=== PATIENT | female | born 1940 | race Caucasian/White ===

== ENCOUNTER 2017-12-10 17:24 | Inpatient (IN) | payer OTHER ==
--- NOTE | 2017-12-10 17:51 | EDPHY ---
H & P Time Seen by Provider: 12/10/17 17:48 HPI/ROS: CHIEF COMPLAINT: Vomiting and abdominal bloating HISTORY OF PRESENT ILLNESS: History of previous bladder cancer surgery but transvaginal, no other abdominal surgeries. 1 week of nausea vomiting and bloating. Associated with having lost 8 lb and anorexia. No diarrhea and no output rectally including no gas. Symptoms severe. Saw her primary care office on Wednesday and was advised symptomatic care. Bloating and discomfort is diffuse and not localized. Worse with trying to eat or drink anything. Does feel very bloated and distended. REVIEW OF SYSTEMS: Eye: no change in vision ENT: no sore throat Cardiac: no chest pain or syncope Pulmonary: no cough or SOB Abdomen: HPI Musculoskeletal: no back pain Skin: no rash Neuro: no headache Constitutional: no fever : no urinary symptoms A comprehensive 10 point review of systems is otherwise negative aside from elements mentioned in the history of present illness. PAST MEDICAL HISTORY: Bladder cancer and hypothyroid Social history: Nonsmoker, Dr. Cuadra's patient. General Appearance: Alert and conversant, cooperative. Eyes: No scleral icterus. ENT, Mouth: Dry mucous membranes. Respiratory: Normal respiratory effort, breath sounds equal, lungs are clear to auscultation. Cardiovascular: Regular rate and rhythm. Gastrointestinal: Distended abdomen with mild periumbilical tenderness but no rebound or guarding. Rectal exam shows no stool in the vault. Neurological: Alert, face symmetric, normal motor and sensory in extremities. Skin: Warm and dry, no rashes. Musculoskeletal: No peripheral edema. Psychiatric: Not agitated. Emergency Department course/MDM: Zofran 4 mg IV, normal saline 1 L, i-STAT. CT scan discussed and consented, concern for bowel obstruction. 1908: Finer CT, SBO with mid ileal transition. Bladder diverticulum or contained break in bladder wall with gas bubbles. Dr. Bennett agrees to admit patient, will see her in the emergency department. Results and plan discussed with patient and her . Smoking Status: Never smoked Constitutional: Initial Vital Signs Temperature (C) 36.0 C 12/10/17 17:35 Heart Rate 95 12/10/17 17:35 Respiratory Rate 18 12/10/17 17:35 Blood Pressure 156/89 H 12/10/17 17:35 O2 Sat (%) 94 12/10/17 17:35 O2 Delivery Mode Room Air Allergies/Adverse Reactions: No Known Allergies Allergy (Unverified 12/10/17 17:34) Home Medications: Medication Instructions Recorded Atorvastatin Calcium [Lipitor 20 20 mg PO HS 12/10/17 mg (*)] Calcium Carbonate [Oyster Shell 500 mg PO DAILY 12/10/17 Calcium 500 mg (*)] Cholecalciferol Vit D3 [Vitamin D3 2,000 units PO DAILY 12/10/17 (*)] Levothyroxine [Synthroid 50 mcg 50 mcg PO DAILY06 12/10/17 (*)] Multivitamins [Multivitamin (*)] 1 each PO DAILY 12/10/17 Medical Decision Making - Diagnostics Imaging Results: Imaging Impressions Abdomen CT 12/10/17 18:06 Impression: 1. Moderate high-grade SBO involving mid ileum in the mid to upper central pelvis with point of transition identified and possible mild swirling of small bowel loop. 2. Complex gas containing diverticulum along the left anterior superior margin of the bladder versus abscess and appears to be in close proximity to the point of transition involving decompressed distal small bowel mid pelvis. If indicated , delayed imaging through the pelvis this evening can better delineate contour of bladder and possible bladder diverticulum as contrast accumulates in the bladder. Findings discussed with Jerman Ureña M.D. at 19:08 hour, 12/10/2017. Imaging: Discussed imaging studies w/ order caller Radiologist Differential Diagnosis: Differential considered including but not limited to small-bowel obstruction, large bowel obstruction, constipation, ileus. Consult/Admit Bed Type: [place] [address] - Data Points Laboratory Results: Laboratory Results 12/10/17 18:00 12/10/17 18:00 12/10/17 12/10/17 12/10/17 18:04 18:00 18:00 WBC RBC Hgb POC Hgb 18.4 gm/dL H gm/dL (12.6-16.3) Hct POC Hct 54 % H % (38-47) MCV MCH MCHC RDW Plt Count MPV Neut % (Auto) Lymph % (Auto) Kershaw % (Auto) Eos % (Auto) Baso % (Auto) Nucleat RBC Rel Count Absolute Neuts (auto) Absolute Lymphs (auto) Absolute Monos (auto) Absolute Eos (auto) Absolute Basos (auto) Absolute Nucleated RBC Immature Gran % Immature Gran # POC Sodium 129 mEq/L L mEq/L (135-145) Sodium 130 mEq/L L mEq/L (135-145) POC Potassium 4.0 mEq/L mEq/L (3.3-5.0) Potassium 4.6 mEq/L mEq/L (3.3-5.0) POC Chloride 89 mEq/L L mEq/L (97-110) Chloride 87 mEq/L L mEq/L (97-110) Carbon Dioxide 29 mEq/l mEq/l (22-31) Anion Gap 14 mEq/L mEq/L (8-16) POC BUN 29 mg/dL H mg/dL (7-23) BUN 31 mg/dL H mg/dL (7-23) Creatinine 1.1 mg/dL H mg/dL (0.6-1.0) POC Creatinine 1.1 mg/dL H mg/dL (0.6-1.0) Estimated GFR 48 Glucose 114 mg/dL H mg/dL (70-100) POC Glucose 117 mg/dL H mg/dL (70-100) Calcium 10.2 mg/dL mg/dL (8.5-10.4) Total Bilirubin 1.1 mg/dL mg/dL (0.1-1.4) Conjugated Bilirubin 0.3 mg/dL mg/dL (0.0-0.5) Unconjugated Bilirubin 0.8 mg/dL mg/dL (0.0-1.1) AST 29 IU/L IU/L (14-46) ALT 39 IU/L IU/L (9-52) Alkaline Phosphatase 110 IU/L IU/L (38-126) Total Protein 7.5 g/dL g/dL (6.3-8.2) Albumin 4.5 g/dL g/dL (3.5-5.0) Lipase 645 IU/L H IU/L (23-300) Stool Occult Bld Scrn NEGATIVE (NEGATIVE) 12/10/17 18:00 WBC 10.96 10^3/uL H 10^3/uL (3.80-9.50) RBC 4.99 10^6/uL 10^6/uL (4.18-5.33) Hgb 17.0 g/dL H g/dL (12.6-16.3) POC Hgb Hct 48.3 % H % (38.0-47.0) POC Hct MCV 96.8 fL fL (81.5-99.8) MCH 34.1 pg pg (27.9-34.1) MCHC 35.2 g/dL g/dL (32.4-36.7) RDW 11.8 % % (11.5-15.2) Plt Count 453 10^3/uL H 10^3/uL (150-400) MPV 8.2 fL L fL (8.7-11.7) Neut % (Auto) 80.6 % H % (39.3-74.2) Lymph % (Auto) 10.6 % L % (15.0-45.0) Kershaw % (Auto) 7.8 % % (4.5-13.0) Eos % (Auto) 0.3 % L % (0.6-7.6) Baso % (Auto) 0.4 % % (0.3-1.7) Nucleat RBC Rel Count 0.2 % % (0.0-0.2) Absolute Neuts (auto) 8.84 10^3/uL H 10^3/uL (1.70-6.50) Absolute Lymphs (auto) 1.16 10^3/uL 10^3/uL (1.00-3.00) Absolute Monos (auto) 0.86 10^3/uL H 10^3/uL (0.30-0.80) Absolute Eos (auto) 0.03 10^3/uL 10^3/uL (0.03-0.40) Absolute Basos (auto) 0.04 10^3/uL 10^3/uL (0.02-0.10) Absolute Nucleated RBC 0.02 10^3/uL H 10^3/uL (0-0.01) Immature Gran % 0.3 % % (0.0-1.1) Immature Gran # 0.03 10^3/uL 10^3/uL (0.00-0.10) POC Sodium Sodium POC Potassium Potassium POC Chloride Chloride Carbon Dioxide Anion Gap POC BUN BUN Creatinine POC Creatinine Estimated GFR Glucose POC Glucose Calcium Total Bilirubin Conjugated Bilirubin Unconjugated Bilirubin AST ALT Alkaline Phosphatase Total Protein Albumin Lipase Stool Occult Bld Scrn Medications Given: Discontinued Medications Sodium Chloride (Ns) 1,000 mls @ 0 mls/hr IV ONCE ONE; Wide Open PRN Reason: Protocol Stop: 12/10/17 18:00 Last Admin: 12/10/17 18:03 Dose: 1,000 mls Sodium Chloride (Ns) 1,000 mls @ 0 mls/hr IV EDNOW ONE; Wide Open PRN Reason: Protocol Stop: 12/10/17 19:58 Last Admin: 12/10/17 19:57 Dose: 1,000 mls Ondansetron HCl (Zofran) 4 mg IVP EDNOW ONE Stop: 12/10/17 17:59 Last Admin: 12/10/17 18:03 Dose: 4 mg Point of Care Test Results: Chemistry 12/10/17 18:04 POC Sodium 129 mEq/L L mEq/L (135-145) POC Potassium 4.0 mEq/L mEq/L (3.3-5.0) POC Chloride 89 mEq/L L mEq/L (97-110) POC BUN 29 mg/dL H mg/dL (7-23) POC Creatinine 1.1 mg/dL H mg/dL (0.6-1.0) POC Glucose 117 mg/dL H mg/dL (70-100) ISTAT H&H 12/10/17 18:04 POC Hgb 18.4 gm/dL H gm/dL (12.6-16.3) POC Hct 54 % H % (38-47) Departure - Departure Disposition: [facility] Inpatient Acute Clinical Impression: Small bowel obstruction Condition: Good
[2017-12-10] MEDS ORDERED: ONDANSETRON 4 MG/2 ML VIAL IVP ONE (17:58)
[2017-12-10] MEDS ORDERED: NS 1,000 ML IV ONE ×2 (17:59→19:57)
[2017-12-10 18:08] LABS: PLATELET COUNT 453 10^3/uL (150-400)
[2017-12-10] MEDS ORDERED: IOPAMIDOL (ISOVUE-300) 100 ML BTL ONE (18:15)
[2017-12-10] MEDS ORDERED: cefOXitin SODIUM 2 GM in NS 100 ML IV ONE (20:08)
[2017-12-10] MEDS ORDERED: BUPIVACAINE/EPI 0.5% 30 ML SDV ONE (20:12)
[2017-12-10] MEDS ORDERED: ROCURONIUM 100 MG/10 ML VIAL ONE (20:53)
[2017-12-10] MEDS ORDERED: fentaNYL 250 MCG/5 ML INJ ONE (20:53)
[2017-12-10] MEDS ORDERED: ONDANSETRON 4 MG/2 ML VIAL ONE (20:53)
[2017-12-10] MEDS ORDERED: RANITIDINE 50 MG/2 ML VIAL ONE (20:53)
[2017-12-10] MEDS ORDERED: DEXAMETHASONE 4 MG/ML VIAL ONE (20:53)
[2017-12-10] MEDS ORDERED: PROPOFOL 200 MG/20 ML VIAL ONE (20:53)
[2017-12-10] MEDS ORDERED: LIDOCAINE 2% 100 MG/5 ML SYR ONE (20:54)
--- NOTE | 2017-12-10 21:19 | GHP ---
DATE OF ADMISSION: 12/10/2017 REASON FOR CONSULTATION: Small-bowel obstruction. HISTORY OF PRESENT ILLNESS: 77-year-old female with no antecedent abdominal surgical history, presents to the emergency room with a 1-week history of progressive abdominal distention, nausea and vomiting. She has been unable to pass flatus or bowel movement for the past week. She was initially thought to have evidence of a gastroenteritis which failed to resolve with conservative measures. She was planned to follow up with a GI doctor and was told that this would take approximately a week for an appointment. She presented to the emergency room for further assessment. In the ER, workup disclosed evidence of a small-bowel obstruction. Surgery has been requested for further recommendations. The patient denies any antecedent history of prior similar concerns. Her only prior surgical history is that of a transurethral resection of bladder tumor. She denies fevers or chills. She has not been voiding. She has been unable to hold down hydration. Her q3 month bladder surveillance cystoscopies have been without tumor recurrence. PAST MEDICAL HISTORY: Bladder cancer, hypothyroidism. PAST SURGICAL HISTORY: TURBT. MEDICATIONS: Statin, levothyroxine, vitamin D. ALLERGIES: No known drug allergies. SOCIAL HISTORY: No alcohol, no tobacco. She is to her . REVIEW OF SYSTEMS: Notable for above acute GI complaints only. PHYSICAL EXAM: VITAL SIGNS: Temperature 36.8, blood pressure 145/74, pulse 90 , respirations 18. GENERAL: Patient is alert, appropriate, comfortable. HEENT : Anicteric. No cervical or supraclavicular lymphadenopathy. HEART: Regular. LUNGS: Clear. ABDOMEN: Markedly distended, firm with multiple palpable loops of small bowel. No abdominal hernias. No abdominal erythema. EXTREMITIES: Without edema. NEUROLOGIC EXAM: Alert and appropriate. SKIN: Without rashes. LABORATORY DATA: White count 11, hemoglobin 18, platelets 450. Electrolytes: Sodium 129, potassium 4, chloride 89, CO2 of 29, BUN 29, creatinine 1.1, glucose 117. Liver enzymes within reference range. Lipase 645. CT images were directly reviewed on PACS, obvious small-bowel obstruction with a mid ileal transition zone. Evidence of possible bladder diverticula versus query small-bowel fistula with abscess. Clinically, no prior antecedent concerns for the aforementioned diagnosis. IMPRESSION: Small-bowel obstruction x1 week with no antecedent intraabdominal surgery. Abnormal bladder findings as above - query enterovesical fistula or abscess? PLAN: Laparoscopic exploration, possible laparotomy, possible resection as indicated. Surgical risks and benefits are explained to the patient and in detail. Differential diagnoses were discussed as well, adhesions, hernias and neoplasms. All questions are answered. They desire to proceed. /[id number]/MODL MTDD
[2017-12-10] MEDS ORDERED: GLYCOPYRROLATE 0.2 MG/1 ML VIAL ONE ×2 (22:54)
[2017-12-10] MEDS ORDERED: NEOSTIGMINE METHYLSULFATE 5 MG/5 ML SYR ONE (22:54)
[2017-12-10] MEDS ORDERED: ONDANSETRON 4 MG/2 ML VIAL IVP PRN ×2 (23:10→23:21)
[2017-12-10] MEDS ORDERED: HYDROmorphone HCL 0.5 MG/0.5 ML SYR IVP PRN (23:10)
[2017-12-10] MEDS ORDERED: ACETAMINOPHEN 325 MG TAB PO PRN (23:10)
[2017-12-10] MEDS ORDERED: HYDROCODONE/APAP 5/325 TAB PO PRN (23:10)
[2017-12-10] MEDS ORDERED: D5W NS 1,000 ML IV SCH (23:15)
--- NOTE | 2017-12-10 23:16 | POSTOPPROG ---
Post Op Note Date of Operation: 12/10/17 Surgeon: Bashir Bennett Anesthesiologist: Christophe Min Anesthesia: GET(General Endotracheal) Pre-op Diagnosis: SBO Post-op Diagnosis: enterovesical fistula with abscess Procedure: lap ev fistula takedown with bladder repair Findings: fistula with abscess Inf/Abcess present in the surg proc area at time of surgery?: Yes Depth: Organ Space EBL: Minimal Complications: no immediate Drains: Other (larose) Specimen(s): bladder mucosa
[2017-12-10] MEDS ORDERED: ALBUTEROL 3 ML DEYVIAL IH PRN (23:21)
[2017-12-10] MEDS ORDERED: fentaNYL 100 MCG/2 ML INJ IVP PRN (23:21)
[2017-12-10] MEDS ORDERED: NALOXONE HCL 0.4 MG/ML INJ IVP PRN (23:21)
--- NOTE | 2017-12-10 23:21 | POSTANESTH ---
Post Anesthetic Evaluation Cardiovascular Status: Similar to Pre-Op Cond Respiratory Status: Similar to Pre-op Cond. Level of Consciousness/Mental Status: Mildly Sleepy, Arousable Pain Control: Adequate, Prn Tx Ordered Nausea/Vomiting Control: Adequate, Prn Tx Ordered Complications Possibly Related to Anesthesia: None Noted
--- NOTE | 2017-12-10 23:21 | PDANEPAE ---
ANE Past Medical History - Pulmonary History Hx Oxygen in Use at Home: No Hx Sleep Apnea: No - Endocrine History Hx Diabetes: No ANE Review of Systems Review of Systems: ANE Patient History - Allergies Allergies/Adverse Reactions: No Known Allergies Allergy (Unverified 12/10/17 17:34) - Home Medications Home Medications: Atorvastatin Calcium [Lipitor 20 mg (*)] 20 mg PO HS 12/10/17 [Last Taken 1 Week Ago ~12/03/17] Calcium Carbonate [Oyster Shell Calcium 500 mg (*)] 500 mg PO DAILY 12/10/17 [ Last Taken 1 Week Ago ~12/03/17] Cholecalciferol Vit D3 [Vitamin D3 (*)] 2,000 units PO DAILY 12/10/17 [Last Taken 1 Week Ago ~12/03/17] Levothyroxine [Synthroid 50 mcg (*)] 50 mcg PO DAILY06 12/10/17 [Last Taken 1 Week Ago ~12/03/17] Multivitamins [Multivitamin (*)] 1 each PO DAILY 12/10/17 [Last Taken 1 Week Ago ~12/03/17] - NPO status NPO Since - Liquids (Date): 12/10/17 NPO Since - Liquids (Time): 07:00 NPO Since - Solids (Date): 12/08/17 NPO Since - Solids (Time): 07:00 - Smoking Hx Smoking Status: Never smoked ANE Labs/Vital Signs - Labs Result Diagrams: 12/10/17 18:00 12/10/17 18:00 - Vital Signs Blood Pressure: 150/80 Heart Rate: 90 Respiratory Rate: 20 O2 Sat (%): 94 Height: 172.72 cm Weight: 62.142 kg ANE Physical Exam - Airway Neck exam: FROM Mallampati Score: Class 2 Mouth exam: normal dental/mouth exam - Pulmonary Pulmonary: no respiratory distress - Cardiovascular Cardiovascular: regular rate and rhythym - ASA Status ASA Status: II ANE Anesthesia Plan Anesthesia Plan: general endotracheal anesthesia
--- NOTE | 2017-12-10 23:54 | GOP ---
DATE OF OPERATION: 12/10/2017 SURGEON: Bashir Bennett MD ANESTHESIA: General. ANESTHESIOLOGIST: Dr. Min. PREOPERATIVE DIAGNOSIS: Small bowel obstruction. 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 PROCEDURE PERFORMED: Laparoscopic takedown of enterovesical fistula with bladder repair. FINDINGS: Enterovesical fistula with abscess. INDICATIONS: 77-year-old female with a 1-week history of a progressive small bowel obstruction. She has undergone no prior antecedent abdominal surgery. She has a notable history for bladder cancer, status post TURBT with negative surveillance followups. She is taken to the operating room tonight for a laparoscopic exploration. DESCRIPTION OF PROCEDURE: General anesthesia was induced. The abdomen was pre- injected with 0.5% Marcaine with epinephrine. A Veress needle was placed in left upper quadrant. 5 mm trocar was subsequently introduced followed by 2 additional 5 mm ports within the infraumbilical position as well as left lower quadrant. Abdominal exploration disclosed an obvious small bowel obstruction with transition point adherent to the dome of the bladder. Extensive time was spent peeling away the small bowel adhesions from the dome disclosing a solitary incomplete fistulization between the dome and small bowel with contained mural abscess. The abscess was drained. Using sharp dissection and Kittner dissectors, the bowel was able to be teased away from the bladder confirming the fistula with a small area of a persistent pouting mucosa. Portions of this were excised and sent for a biopsy. The bladder was instilled showing the cystotomy/fistulous site. This area was initially attempted to be closed using a PDS endo-loop. Given the massively thickened nature of the area , a reasonable purchase was unable to be obtained. The area was primarily closed with 2 running 3-0 V-Loc sutures. The bladder was again re-instilled with saline showing no evidence of ongoing leak. The small bowel was run from the ileocecal valve toward the ligament of Treitz. No further areas of obstruction were noted. The bowel was noted to be hemostatic without evidence of injury. Satisfactory hemostasis was assured. Interceed was placed over the cystotomy repair site. Trocars were removed under direct visualization. The wounds were closed with Monocryl suture followed by Dermabond. The patient was taken to the recovery room, extubated uneventfully. /[id number]/MODL MTDD
[2017-12-11] MEDS: IBUPROFEN 600 MG TAB PO SCH ×3 (05:11→21:25)
--- NOTE | 2017-12-11 07:20 | PDMN ---
Medical Necessity Medical necessity: Pt meets inpt criteria per MD order and MCG M-210, Intestinal Obstruction. 77 y/o pt w/ ongoing abd pain,N/V, bloating, abd CT shows mod to high-grade SBO, surg consult, surg intervention: lap enterovesical fistula takedown w/bladder repair, anticipate>2MN for post-op monitoring/ treatment.
--- NOTE | 2017-12-11 07:39 | SOAPPROG ---
SOAP Progress Note Assessment/Plan: Assessment:no overnight issues. pain markedly improved. no nausea. avss. comfortable. abd soft, decreased distention. incis clean. pod#1 s/p takedown enterovesical fistula, abscess, sbo with cystotomy repair. larose clear, mana. Na 130. doing great. diet as able. cont larose. cont ancef. poss dc tomorrow if cont to tolerate po. Plan: 12/11/17 07:37 Objective: Vital Signs Temp Pulse Resp BP Pulse Ox 36.4 C 71 16 111/69 95 12/11/17 03:24 12/11/17 03:24 12/11/17 03:24 12/11/17 03:24 12/11/17 03:24 Laboratory Results 12/11/17 04:45 12/10/17 12/11/17 12/12/17 05:59 05:59 05:59 Intake Total 4100 Output Total 180 Balance 3920 ICD10 Worksheet Patient Problems: Problems Problem Status Onset Small bowel obstruction Acute
[2017-12-11] MEDS ORDERED: PNEUMOC 13-VAL CONJ-DIP CRM/PF 0.5 ML SYR IM ONE (11:09)
--- NOTE | 2017-12-11 15:56 | ASMTCMCOM ---
CM Note CM Note Notes: Pt admitted for SBO and subsequently had enerovesicle takedown surgery. No therapies ordered at this time. Pt likely to d/c tomorrow pending ability to eat and drink. Pt lives at home with and is comfortable discharging home independently with 's support. No CM need anticipated at this time. CM to follow. D/C Plan: Home independently with Date Signed: 12/11/2017 03:56 PM Electronically Signed By:Saadia Roebrt
[2017-12-12] MEDS: IBUPROFEN 600 MG TAB PO SCH ×3 (05:53→22:05)
--- NOTE | 2017-12-12 09:17 | SOAPPROG ---
SOAP Progress Note Assessment/Plan: Assessment:emesis x1 earlier today am. no pain. no nausea. no flatus. some belching. avss. comfortable. abd dist, soft, tympanitic. incision clean. pod #2 s/p lenora, enterovesical fistula repair. slow progress. po as able. ambulate. await ileus resolution. poss dc tonight if able to maintain po/ hydration. cont larose with cystogram prior to cath removal later this week. care plan reviewed with patient, and nursing staff. no overnight issues. pain markedly improved. no nausea. avss. comfortable. abd soft, decreased distention. incis clean. pod#1 s/p takedown enterovesical fistula, abscess, sbo with cystotomy repair. larose clear, mana. Na 130. doing great. diet as able. cont larose. cont ancef. poss dc tomorrow if cont to tolerate po. Plan: 12/11/17 07:37 12/12/17 09:15 Objective: Vital Signs Temp Pulse Resp BP Pulse Ox 36.6 C 77 16 129/62 H 93 12/12/17 07:24 12/12/17 07:24 12/12/17 07:24 12/12/17 07:24 12/12/17 07:24 Laboratory Results 12/11/17 04:45 12/11/17 12/12/17 12/13/17 05:59 05:59 05:59 Intake Total 4100 400 Output Total 180 1400 Balance 3920 -1000 ICD10 Worksheet Patient Problems: Problems Problem Status Onset Small bowel obstruction Acute
[2017-12-12] MEDS ORDERED: ONDANSETRON 4 MG/2 ML VIAL IVP PRN (12:00)
[2017-12-12] MEDS ORDERED: D5W 1/2 NS W/ 20 KCl/L 1,000 ML IV SCH (12:00)
[2017-12-13] MEDS: IBUPROFEN 600 MG TAB PO SCH (05:28)
[2017-12-13 07:28] VITALS: BP 116/78
--- NOTE | 2017-12-13 07:29 | SOAPPROG ---
SOAP Progress Note Assessment/Plan: Assessment:no further emesis. no pain. less belching. +flatus. AVSS. comfortable. abd dist, soft. incis clean. improved ileus s/p lap LENORA/EV fistula repar. plan for DC later today. can stop ABX on discharge. cystogram and f/u later this week. all questions answered. emesis x1 earlier today am. no pain. no nausea. no flatus. some belching. avss. comfortable. abd dist, soft, tympanitic. incision clean. pod#2 s/p lenora , enterovesical fistula repair. slow progress. po as able. ambulate. await ileus resolution. poss dc tonight if able to maintain po/hydration. cont larose with cystogram prior to cath removal later this week. care plan reviewed with patient, and nursing staff. no overnight issues. pain markedly improved. no nausea. avss. comfortable. abd soft, decreased distention. incis clean. pod#1 s/p takedown enterovesical fistula, abscess, sbo with cystotomy repair. larose clear, mana. Na 130. doing great. diet as able. cont larose. cont ancef. poss dc tomorrow if cont to tolerate po. Plan: 12/11/17 07:37 12/12/17 09:15 12/13/17 07:27 Objective: Vital Signs Temp Pulse Resp BP Pulse Ox 36.6 C 80 16 102/52 L 90 L 12/12/17 23:26 12/12/17 23:26 12/12/17 23:26 12/12/17 23:26 12/12/17 23:26 Laboratory Results 12/11/17 04:45 12/12/17 12/13/17 12/14/17 05:59 05:59 05:59 Intake Total 400 1460 Output Total 1400 1375 Balance -1000 85 ICD10 Worksheet Patient Problems: Problems Problem Status Onset Small bowel obstruction Acute
--- NOTE | 2017-12-13 07:50 | GDS ---
REASON FOR ADMISSION: Small bowel obstruction. HOSPITAL COURSE: 77-year-old female admitted with a small bowel obstruction. She underwent laparoscopic exploration. She was found to have an enterovesical fistula acting as a lead point resulting in small bowel obstruction. She underwent a laparoscopic detorsion of her small bowel obstruction with repair of her enterovesical fistula. She had a benign postoperative course. She was discharged home on postop day #3 in good condition, tolerating a regular diet with adequate pain control with oral analgesics. She was to resume all pre- hospital medications. She was discharged to home with a Umana catheter, which she had used previously. She will undergo a cystogram in followup later this week, prior to catheter removal. She was to resume all pre-hospital medications. She was using Tylenol or ibuprofen as needed for discomfort. Full instructions were explained to the patient and prior to leaving. /[id number]/MODL MTDD
--- NOTE | 2017-12-13 14:03 | ASMTLACE ---
LACE Length of stay for Answers: 4-6 days current admission Acuity / Level of Answers: Yes Care: Did the patient have an inpatient admission? Comorbidities - select Answers: Any tumor (including all that apply lymphoma or leukemia) Other Notes: SBO # of Emergency department Answers: 1-2 visits in the last 6 months Score: 11 Date Signed: 12/13/2017 02:02 PM Electronically Signed By:KENNETH Vann
--- NOTE | 2017-12-13 14:04 | ASMTCMCOM ---
CM Note CM Note Notes: Pt medically stable for d/c, no CM d/c needs identified. Date Signed: 12/13/2017 02:03 PM Electronically Signed By:KENNETH Vann
== END 2017-12-13 14:27 | disposition home or self-care (01) | DRG 336 ==
LOC: F3N 23:48
PROVIDERS: ADMIT Surgery; ATTEND Surgery
DX: K56.609 Unspecified intestinal obstruction, unspecified as to partial versus complete obstruction (principal); N32.1 Vesicointestinal fistula; E86.9 Volume depletion, unspecified; Z85.51 Personal history of malignant neoplasm of bladder; Z23 Encounter for immunization; E03.9 Hypothyroidism, unspecified
CPT/HCPCS: 82435-PO; 82565-PO; 82947-PO; 84132-PO; 84295-PO; 84520-PO; 85014-PO; 96374; C1765; G0008; J0690; J0694; J1100; J2001; J2405; J2704; J2710; J2780; J3010; Q9967

== ENCOUNTER → 2017-12-15 | Outpatient (CLI) | payer OTHER ==
[~2017-12-15] MED LIST: IOTHALAMATE MEG (CYSTO-CONRAY II) 250 ML VIAL BLADIN ONE
== END ==
LOC: FIMAGING 12:33
PROVIDERS: ATTEND Surgery
PROC: 3E0K3KZ Introduction of Other Diagnostic Substance into Genitourinary Tract, Percutaneous Approach (ICD-10-PCS; principal; 2017-12-15)
DX: N32.9 Bladder disorder, unspecified (principal); Z85.51 Personal history of malignant neoplasm of bladder
CPT/HCPCS: 51600; 74430; Q9961